=== PATIENT | male | born 1985 | race Caucasian/White ===

== ENCOUNTER 2017-07-09 10:00 | Emergency (ER) | payer OTHER ==
[~2017-07-09] VITALS: Ht 172.7 cm; Wt 77.1 kg
[2017-07-09 10:50] VITALS: BP 131/80
--- NOTE | 2017-07-10 07:01 | Emergency Room Report ---
History of Present Illness General Chief Complaint: Earache Source: Patient Present Illness HPI Patient presents with left ear discomfort He reports off-and-on for the past one year he has had a popping sensation on that side Denies any headache denies any visual changes Denies any contact with loud noise or trauma Denies any dizziness denies any neck pain Denies any fevers or chills Denies any change with position Allergies: Coded Allergies: UNABLE TO ASSESS (Unverified , 07/09/17) Patient History Past Medical History: see triage record Pertinent Family History: none Reviewed Nursing Documentation: PMH: Agreed, PSxH: Agreed Nursing Documentation-PM Past Medical History: No Stated History Review of Systems All Other Systems: negative except mentioned in HPI Physical Exam Vital Signs Date Time Temp Pulse Resp B/P (MAP) Pulse Ox O2 Delivery O2 Flow Rate FiO2 07/09/17 10:07 107 16 130/82 96 Room Air 07/09/17 10:50 98.0 Sp02 EP Interpretation: reviewed, normal General Appearance: well appearing, no apparent distress Head: normocephalic, atraumatic Eyes: bilateral eye PERRL, bilateral eye EOMI ENT: other - Right ear is clear, the left side does show cerumen impaction Neck: full range of motion, supple Respiratory: chest non-tender, lungs clear Cardiovascular #1: regular rate, rhythm Musculoskeletal: normal inspection Neurologic: alert, oriented x3, responsive Skin: normal color, no rash Lymphatic: no adenopathy Medical Decision Making Diagnostic Impression: Primary Impression: cerumen impaction ER Course Patient was provided information regarding home care for cerumen impaction he does require followup with primary physician for reevaluation once this is clear The symptoms could be related to the impaction however examination of visualization behind the impaction is also important Last Vital Signs Date Time Temp Pulse Resp B/P (MAP) Pulse Ox O2 Delivery O2 Flow Rate FiO2 07/09/17 10:50 106 19 131/80 99 Room Air 07/09/17 10:50 98.0 Status: unchanged Disposition: HOME, SELF-CARE Condition: Stable Referrals: [facility]ERR[facility] (PCP) Patient Instructions: Cerumen Impaction Additional Instructions: Patient is provided with the discharge instructions notified to follow up with primary doctor in the next 2-3 days otherwise return to the er with any worsening symptoms. Please note that this report is being documented using DRAGON technology. This can lead to erroneous entry secondary to incorrect interpretation by the dictating instrument. CAIO WYATT D.O. Jul 10, 2017 07:01
== END 2017-07-09 10:50 | disposition home or self-care (01) ==
LOC: EMR 10:32
DX: H61.22 Impacted cerumen, left ear (principal)
CPT/HCPCS: 99282